=== PATIENT | female | born 1955 | race Caucasian/White ===

== ENCOUNTER → 2020-01-28 15:23 | Outpatient (CLI) | payer OTHER, SELFPAY ==
--- NOTE | 2020-01-28 | DI.US.S_ITS ---
PROCEDURE: US THYROID INDICATIONS: Nontoxic single thyroid nodule TECHNIQUE: Real-time scanning was performed of the thyroid gland, with image documentation. COMPARISON: None. FINDINGS: Right: Thyroid lobe measures 4.8 x 1.9 x 1.5 cm, and is homogeneous in echotexture. Sub 5 mm right colloid cyst. Left: Thyroid lobe measures 5.6 x 1.9 x 1.6 cm, and is homogenous in echotexture. Isthmus: 2.0 mm thick. IMPRESSION: Sub 5 mm right colloid cyst; otherwise normal thyroid. Dictated by: Junior CONDE Interpreted: Meño Avilez MD on 01/28/2020 at 16:52 Approved by: Meño Avilez M.D. on 01/28/2020 at 17:02
--- NOTE | 2020-01-28 | DI.MG.S_ITS ---
BILATERAL DIGITAL SCREENING MAMMOGRAM 3D/2D WITH CAD: 01/28/2020 CLINICAL: Routine screening. Comparison is made to exams dated: 11/25/2018 mammogram, 02/08/2017 mammogram, and 01/12/2015 mammogram - outside location. The tissue of both breasts is heterogeneously dense. This may lower the sensitivity of mammography. Current study was also evaluated with a Computer Aided Detection (CAD) system. There is irregular equal density architectural distortion with an indistinct margin in the left breast at 6 o'clock middle depth. No other significant masses, calcifications, or other findings are seen in either breast. IMPRESSION: INCOMPLETE: NEEDS ADDITIONAL IMAGING EVALUATION The irregular equal density architectural distortion in the left breast is indeterminate. Mediolateral and spot compression views as well as additional views with possible ultrasound are recommended. This exam was interpreted at Station ID: [id number]. NOTE: For mammograms, a report in lay terms will be sent to the patient. Approximately 15% of breast malignancies will not be visualized mammographically. In the management of a palpable breast mass, a negative mammogram must not discourage biopsy of a clinically suspicious lesion. Electronically Signed By: Ed willingham/minal:01/28/2020 16:39:18 letter sent: Additional Imaging Needed ACR BI-RADS Category 0: Incomplete 3340F
--- NOTE | 2020-01-28 | DI.RAD.S_ITS ---
PROCEDURE: XR CHEST 2V INDICATIONS: COUGH TECHNIQUE: 2 views of the chest were acquired. COMPARISON: None. FINDINGS: Surgical changes and devices: None. Lungs and pleura: Lungs are clear. No pleural effusions or pneumothorax. Mediastinum: Mediastinal contours are normal. Heart size is normal. Bones and chest wall: No suspicious bony abnormalities. Soft tissues appear unremarkable. IMPRESSION: No source for cough identified radiographically. Dictated by: Junoir Curry [facility] Interpreted: Meño Avilez MD on 01/28/2020 at 16:17 Approved by: Meño Avilez M.D. on 01/29/2020 at 11:20
== END ==
PROVIDERS: PCP Family Medicine; Referring Provider Family Medicine; Visit Provider Family Medicine
DX: Z12.31 Encounter for screening mammogram for malignant neoplasm of breast (principal); E04.1 Nontoxic single thyroid nodule; R05 Cough
CPT/HCPCS: 71046; 76536; 77063; 77067

== ENCOUNTER → 2020-02-24 14:37 | Outpatient (CLI) | payer OTHER, SELFPAY ==
--- NOTE | 2020-02-24 | DI.MG.S_ITS ---
UNILATERAL LEFT DIGITAL DIAGNOSTIC MAMMOGRAM 3D/2D WITH ADDITIONAL VIEWS: 02/24/2020 CLINICAL: Additional evaluation requested from prior study. Comparison is made to exams dated: 01/28/2020 mammogram - [facility], 11/25/2018 mammogram, 02/08/2017 mammogram, and 01/12/2015 mammogram - outside location. The tissue of left breast is heterogeneously dense. This may lower the sensitivity of mammography. The previously described area of architectural distortion in the left breast is no longer visualized, presumably secondary to superimposed fibroglandular breast tissue on the prior exam. No significant masses, calcifications, or other findings are seen in the breast. IMPRESSION: NEGATIVE There is no mammographic evidence of malignancy. A 1 year screening mammogram is recommended. This exam was interpreted at Station ID: [id number]. NOTE: For mammograms, a report in lay terms will be sent to the patient. Approximately 15% of breast malignancies will not be visualized mammographically. In the management of a palpable breast mass, a negative mammogram must not discourage biopsy of a clinically suspicious lesion. Electronically Signed By: Meño mann/minal:02/24/2020 16:06:20 letter sent: Normal Exam ACR BI-RADS Category 1: Negative 3341F
== END ==
PROVIDERS: PCP Family Medicine; Referring Provider Family Medicine; Visit Provider Family Medicine
DX: R92.8 Other abnormal and inconclusive findings on diagnostic imaging of breast (principal)
CPT/HCPCS: 77065; G0279

== ENCOUNTER → 2021-08-03 09:32 | Outpatient (CLI) | payer MEDICARE, OTHER, SELFPAY ==
--- NOTE | 2021-08-03 | DI.US.S_ITS ---
PROCEDURE: US ABD AORTA ANEURYSM SCREEN INDICATIONS: Fibrous breast lumps,AAA screen TECHNIQUE: Real time scanning was performed of the aorta and iliac arteries, with image documentation. COMPARISON: None. FINDINGS: Aorta: Proximal aortic diameter measures 2.3 cm. Mid-aorta measures 2.1 cm. Distal aortic diameter is 1.9 cm. Iliac arteries: Right common iliac artery measures 1.2 cm. Left common iliac artery measures 1.0 cm. IMPRESSION: No abdominal aortic ectasia or aneurysmal dilatation. Dictated by: Thu Villa M.D. on 08/03/2021 at 12:25 Approved by: Thu Villa M.D. on 08/03/2021 at 12:26
--- NOTE | 2021-08-03 | DI.MG.S_ITS ---
BILATERAL DIGITAL DIAGNOSTIC MAMMOGRAM 3D/2D: 08/03/2021 CLINICAL: Routine screening with order for a diagnostic per provider. Comparison is made to exams dated: 02/24/2020 mammogram, 01/28/2020 mammogram - [facility], 11/25/2018 mammogram, and 02/08/2017 mammogram - outside location. The tissue of both breasts is heterogeneously dense. This may lower the sensitivity of mammography. No significant masses, calcifications, or other findings are seen in either breast. Benign calcification in the left breast. There has been no significant interval change. Patient denies palpable abnormality. IMPRESSION: NEGATIVE There is no mammographic evidence of malignancy. A 1 year screening mammogram is recommended. Exam findings were conveyed to the patient. This exam was interpreted at Station ID: [id number]. NOTE: For mammograms, a report in lay terms will be sent to the patient. Approximately 15% of breast malignancies will not be visualized mammographically. In the management of a palpable breast mass, a negative mammogram must not discourage biopsy of a clinically suspicious lesion. Electronically Signed By: Bharat Diez M.D. slc/:08/03/2021 12:05:03 letter sent: Normal Exam ACR BI-RADS Category 1: Negative 3341F
== END ==
PROVIDERS: PCP Nurse Practitioner Family; Referring Provider Nurse Practitioner Family; Visit Provider Nurse Practitioner Family
DX: Z13.820 Encounter for screening for osteoporosis; N63.0 Unspecified lump in unspecified breast; Z13.6 Encounter for screening for cardiovascular disorders; M85.851 Other specified disorders of bone density and structure, right thigh; Z78.0 Asymptomatic menopausal state
CPT/HCPCS: 76706; 77066; 77080; G0279

== ENCOUNTER → 2023-11-12 12:27 | Outpatient (CLI) | payer MEDICARE, OTHER, SELFPAY ==
--- NOTE | 2023-11-12 13:40 | DI.MRI.S_ITS ---
PROCEDURE: MR SHOULDER RT WO CON INDICATIONS: RIGHT SHOULDER ROTATOR CUFF TEAR TECHNIQUE: Noncontrast oblique coronal T2 fast spin echo with fat saturation, oblique sagittal T1 spin echo and T2 fast spin echo with fat saturation, axial T1 spin echo and T2 fast spin echo with fat saturation through the shoulder. COMPARISON: None. FINDINGS: Image quality: Excellent. Rotator cuff: Full-thickness rupture of distal supraspinatus at its insertion on humeral head is seen with up to 3.6 cm medial retraction of torn tendon fibers to the level of acromioclavicular joint. Low-grade articular surface partial-thickness tear involving distal infraspinatus at its insertion on the humeral head is also seen extending to musculotendinous junction. Low-grade intrasubstance partial-thickness tear involving distal subscapularis is noted. Sagittal images demonstrate moderate supraspinatus muscle atrophy. Bones and bursae: There is superior migration of humeral head in relation to glenoid. Moderate acromioclavicular joint and glenohumeral joint osteoarthritic changes are seen. No fracture or dislocation. Moderate joint effusion and subacromial subdeltoid bursal fluid is noted, no definite intra-articular loose bodies. Capsule and soft tissues: There is signal abnormality and fraying of superior labrum extending from 11-1 o'clock position suggestive of extensive superior labral tear. The long head of the biceps tendon appears thickened. The rotator interval appears normal, without fibrosis. The coracohumeral ligament is normal in thickness. IMPRESSION: 1. Full-thickness rupture of distal supraspinatus at its insertion on humeral head with up to 3.6 cm medial retraction of torn tendon fibers to the level of acromioclavicular joint. Low-grade articular surface partial-thickness tear involving distal infraspinatus extending to musculotendinous junction. Low-grade intrasubstance partial-thickness tear involving distal subscapularis. Moderate supraspinatus muscle atrophy. 2. Mild superior migration of humeral head in relation to glenoid. Moderate acromioclavicular joint and glenohumeral joint osteoarthritis. No fracture or dislocation. Moderate joint effusion and subacromial subdeltoid bursal fluid. No loose bodies. 3. Suggestion of extensive superior labral tear. 4. Proximal long head of biceps tendinosis. Dictated by: Everette Hilton M.D. on 11/12/2023 at 13:33 Approved by: Everette Hilton M.D. on 11/12/2023 at 14:08
== END ==
PROVIDERS: PCP Nurse Practitioner Family; Referring Provider Physical Medicine & Rehabilitation Pain Medicine; Visit Provider Physical Medicine & Rehabilitation Pain Medicine
DX: M75.121 Complete rotator cuff tear or rupture of right shoulder, not specified as traumatic (principal); M19.011 Primary osteoarthritis, right shoulder; M25.411 Effusion, right shoulder; M25.511 Pain in right shoulder
CPT/HCPCS: 73221